=== PATIENT | male | born 1990 | race Caucasian/White ===

== ENCOUNTER 2018-10-21 03:53 | Emergency (ER) | payer OTHER ==
[~2018-10-21] VITALS: Ht 182.9 cm; Wt 79.4 kg
[2018-10-21] MEDS ORDERED: MORPHINE SULFATE 2 MG/1 ML DISP.SYRIN IV ONE (04:30)
[2018-10-21] MEDS ORDERED: ENOXAPARIN SODIUM 80 MG/0.8 ML DISP.SYRIN SQ ONE (04:30)
[2018-10-21] MEDS ORDERED: ONDANSETRON 4 MG/2 ML VIAL IV ONE (04:30)
[2018-10-21] MEDS ORDERED: IV NORMAL SALINE 1000 ML BAG IV ONE (04:30)
--- NOTE | 2018-10-21 04:30 | NUR ---
Dr. Brewer at bedside for MSE.
[2018-10-21] MEDS ORDERED: ENOXAPARIN SODIUM 100 MG/ML DISP.SYRIN SQ ONE (05:02)
[2018-10-21 05:15] LABS: BASOPHILS % (AUTO) 0.3 % (0.0-2.0); EOSINOPHILS % (AUTO) 0.1 % (0.0-7.0); HEMATOCRIT 35.2 % (36.7-47.1); HEMOGLOBIN 12.4 g/dL (12.5-16.3); LYMPHOCYTES # (AUTO) 0.8 K/uL (20.0-40.0); LYMPHOCYTES % (AUTO) 11.7 % (20.5-51.5); MEAN CORPUSCULAR HGB CONC 35 g/dL (32.5-36.3); MEAN CORPUSCULAR VOLUME 87.9 fL (73.0-96.2); MONOCYTES # (AUTO) 0.7 K/uL (2.0-10.0); MONOCYTES % (AUTO) 9.2 % (0.0-11.0); NEUTROPHILS # (AUTO) 5.6 K/uL (1.8-8.9); NEUTROPHILS % (AUTO) 78.7 % (38.5-71.5); PLATELET COUNT (AUTO) 242 K/uL (152-348); RED BLOOD CELL COUNT(AUTO) 4.01 MIL/uL (4.06-5.63); WHITE BLOOD COUNT (AUTO) 7.1 K/uL (3.6-10.2)
--- NOTE | 2018-10-21 05:24 | NUR ---
Ultrasound at bedside.
[2018-10-21 05:28] LABS: POTASSIUM 3.9 mmol/L (3.5-5.1)
[2018-10-21] MEDS ORDERED: HYDROMORPHONE 1 MG/1 ML DISP.SYRIN IM ONE (05:30)
[2018-10-21] MEDS ORDERED: ONDANSETRON 4 MG/2 ML VIAL IM ONE (05:30)
--- NOTE | 2018-10-21 05:30 | NUR ---
Unable to start IV after multiple attempts, notified.
[2018-10-21 05:34] LABS: BILIRUBIN,DIRECT 0.4 mg/dL (0.0-0.2); BILIRUBIN,TOTAL 1.4 mg/dL (0.2-1.0); TOTAL PROTEIN, SERUM 8.7 g/dL (6.4-8.2)
[2018-10-21] MEDS ORDERED: ONDANSETRON 4 MG/2 ML VIAL ONE ×3 (05:37→09:28)
[2018-10-21] MEDS ORDERED: HYDROMORPHONE 1 MG/1 ML DISP.SYRIN ONE ×2 (05:37→09:27)
--- NOTE | 2018-10-21 06:01 | NUR ---
Dr. Brewer speaking with [facility], stated that Geoffrey Kc doesn't have a record there. Pt states he was there on 10/19/18. Reclarified with patient after [place] unable to find, pt stated that he used the name/alias "Geoffrey Moreland" and : 1990 at [facility].
[2018-10-21] MEDS ORDERED: MORPHINE SULFATE 4 MG/1 ML DISP.SYRIN ONE (06:42)
[2018-10-21] MEDS ORDERED: IOHEXOL 350 100 ML INFUS..BTL ONE (06:45)
[2018-10-21] MEDS ORDERED: IV NORMAL SALINE 250 ML IV ONE (06:45)
[2018-10-21] MEDS ORDERED: SWABABLE VALVE TRANSFER SET EA MC ONE (06:45)
--- NOTE | 2018-10-21 06:45 | NUR ---
Report given to Robles lujan.
--- NOTE | 2018-10-21 06:54 | NUR ---
Patient out from ER to [facility]
--- NOTE | 2018-10-21 08:40 | NUR ---
PT IS IN BED #2B. PT ATE BREAKFAST (100%). ACCOUNT MANAGER B2B ARISTIDES WAS CALLED TO HELP PT WITH RESIDENTIAL PLACEMENT. JESE IS 20 MINUTES.
[2018-10-21 08:47] VITALS: BP 131/78
--- NOTE | 2018-10-21 09:06 | NUR ---
PT WAS EVALUATED BY SHIFT SUPERVISOR ARISTIDES. PT WAS PROVIDED WITH ALL REQUIRED INFORMATION FOR SHELTERS, FOOD SUPPLIE, MEDICAL HELP BY SHIFT SUPERVISOR. GAIT IS STABLE. NO S/S OF DISTRESS AT THIS TIME. PT D/C'D FROM [facility]. D/C INSTRUCTIONS GIVEN TO THE PT.
[2018-10-21] MEDS ORDERED: KETOROLAC TROMETHAMINE 30 MG INJ IVP ONE (09:30)
[2018-10-21] MEDS ORDERED: KETOROLAC TROMETHAMINE 30 MG INJ ONE (09:39)
--- NOTE | 2018-10-21 10:16 | NUR ---
8:45am: SW arrived to ED in response to consultation request for this patient. IAN met with MARTINA Mays and discussed patient's case and needs. SW then met with patient, who was in his assigned ED bed. Patient was receptive to meeting with this SW. Patient is a 28 year old male who came in to the ED for lower extremity pain. Patient is alert, oriented x 4. Patient stated that he is homeless, [place] [facility] for the past 5 months. Patient stated that 3 years ago, he was also homeless for about a 2 year span. Patient stated that in between the 2 times he's been homeless, he lived with his parents who live in [place], but that did not work out and that was not an option for him at this time. SW generated a discussion with patient about his needs, and provided him with information on the different homeless resources that SW could provide him with. Patient stated that he did not want to go to a long-term, but that he would take the information regarding shelters and think about it as a future option. Patient also expressed wanting information on places he could go for meals and showers, along with mental health clinics. IAN provided patient with the following resources: 1) List of year round shelters: [facility] ([address] [address], ), [facility] ([address] [place] [address], ) and [facility] [place] ([address] [place] [address], ). 2) The Homeless Resource Directory from the [facility] [place], which includes a list of locations, with dates and times, throughout the [facility] that homeless individuals can go to get hot meals, sack lunches, and take hot showers. A list of food pantries throughout the [facility] are also included in this directory 3) A list of mental health and medical clinics, and a list of substance abuse programs/agencies 4) A list of pharmacies throughout the [facility]. A copy of all the resources provided (listed above) was filed in patient's ED chart. IAN also provided patient with a pair of pants and a shirt. RN provided patient with a meal tray. Patient signed the homeless patient waiver form, declined transportation offered by the hospital, and stated that he would like to be discharged to himself and that he would walk back to his previous living arrangement. Homeless waiver form filed in patient's ED chart. MARTINA Bentley informed. See RN and physician's notes for discharge instructions that were provided.
== END 2018-10-21 09:09 | disposition home or self-care (01) ==
LOC: ER 04:39
DX: M79.661 Pain in right lower leg (principal); R06.02 Shortness of breath; F17.200 Nicotine dependence, unspecified, uncomplicated; F15.10 Other stimulant abuse, uncomplicated; Z59.0 Homelessness
CPT/HCPCS: 36415; 71275; 80048; 80076; 82550; 85025; 85730; 93005; 93971; 96372 ×3; 96374; 96375; 99284; J1170; J1650; J1885; J2270; J2405 ×3; Q9967; A4663; J7030; J7050